=== PATIENT | male | born 1985 | race African-American/Black ===

== ENCOUNTER 2020-03-26 13:09 | Emergency (ER) | payer MEDICAID, OTHER ==
[~2020-03-26] VITALS: Ht 180.3 cm; Wt 100.0 kg
[2020-03-26 13:10] VITALS: BP 144/91
== END 2020-03-26 14:57 | disposition left against medical advice (07) ==
LOC: ER 13:18
DX: T40.601A Poisoning by unspecified narcotics, accidental (unintentional), initial encounter (principal); F14.10 Cocaine abuse, uncomplicated; Y92.810 Car as the place of occurrence of the external cause
CPT/HCPCS: 93005; 99283

== ENCOUNTER 2020-03-26 19:00 | Emergency (ER) | payer MEDICAID ==
[~2020-03-26] VITALS: Ht 182.9 cm; Wt 91.0 kg
[2020-03-26] MEDS ORDERED: CLONIDINE 0.2MG TABLET PO ONE (20:15)
[2020-03-26 20:32] LABS: HEMATOCRIT. 46.2 % (42.0-52.0); HEMOGLOBIN. 15.6 g/dL (14.0-18.0); MEAN CORPUSCULAR HEMOGLOBIN 30.1 pg (28.0-32.0); MEAN CORPUSCULAR VOLUME 89.1 fL (80.0-94.0); MEAN PLATELET VOLUME 8.4 fl (7.4-10.4); PLATELET 263 x1000/uL (130-400); RED BLOOD CELL COUNT 5.18 mill/uL (4.7-6.1); RED CELL DISTRIBUTION WIDTH 13.2 % (11.6-14.6)
[2020-03-26 20:38] LABS: CHLORIDE 101 mEq/L (98-107)
[2020-03-26 20:41] LABS: ETHANOL BLOOD < 10 mg/dL
[2020-03-26 20:49] LABS: PLATELET ESTIMATE NORMAL
[2020-03-27 00:13] VITALS: BP 169/99
== END 2020-03-27 00:52 | disposition home or self-care (01) ==
LOC: ER 19:00
DX: T40.5X1A Poisoning by cocaine, accidental (unintentional), initial encounter (principal); T40.411A Poisoning by fentanyl or fentanyl analogs, accidental (unintentional), initial encounter; I10 Essential (primary) hypertension; Y92.488 Other paved roadways as the place of occurrence of the external cause
CPT/HCPCS: 36415; 80053; 80307; 80320; 80329; 85025; 93005; 99284; G0480

== ENCOUNTER 2022-03-01 02:09 | Emergency (ER) | payer MEDICAID ==
[~2022-03-01] VITALS: Ht 177.8 cm; Wt 93.0 kg
[2022-03-01] MEDS ORDERED: ACETAMINOPHEN 325MG TABLET PO ONE (03:15)
[2022-03-01] MEDS ORDERED: LIDOCAINE 5% PATCH TOP ONE (03:15)
[2022-03-01] MEDS ORDERED: IBUP-2029 MT (04:43)
[2022-03-01] MEDS ORDERED: LIDO700A15 TP (04:43)
[2022-03-01] MEDS ORDERED: BACL-141 MT (04:43)
[2022-03-01 04:51] VITALS: BP 132/77
== END 2022-03-01 04:59 | disposition home or self-care (01) ==
LOC: ER 02:09
DX: S13.4XXA Sprain of ligaments of cervical spine, initial encounter (principal); S80.01XA Contusion of right knee, initial encounter; I10 Essential (primary) hypertension; F14.10 Cocaine abuse, uncomplicated; F17.210 Nicotine dependence, cigarettes, uncomplicated; V43.52XA Car driver injured in collision with other type car in traffic accident, initial encounter; Y93.89 Activity, other specified; Y92.488 Other paved roadways as the place of occurrence of the external cause
CPT/HCPCS: 73562; 99283